=== PATIENT | male | born 1995 | race Caucasian/White ===

== ENCOUNTER 2018-07-25 13:34 | Emergency (ER) | payer OTHER ==
[~2018-07-25] VITALS: Ht 167.6 cm; Wt 77.1 kg
[~2018-07-25 13:34] MED LIST: ACETAMINOPHEN-1 EAC1 PO; BACTRIM DS TAB1 EACH PO; CLARITIN10 MG PO; DARVOCET-N 1001 EACH PO; FLEXERIL PO; FLOVENT; IBUPROFEN 800800 M1 PO; NOHOMEMEDICATIONS; PREDNISONE 20 M20 M1 PO; PROVENTIL; SINGULAIR 10 MG10 M1 PO; VENTOLIN HFA 1818 GM INH; ZPAK PO
[2018-07-25 13:57] LABS: ABSOLUTE EOSINOPHILS 0.1 thou/uL (0.0-0.7); ABSOLUTE LYMPHOCYTES 1.4 thou/uL (0.8-5.3); ABSOLUTE MONOCYTES 0.5 thou/uL (0.0-1.2); ABSOLUTE NEUTROPHILS 6.4 thou/uL (1.6-8.1); BASOPHILS 0.4 %; EOSINOPHILS 0.9 %; HEMATOCRIT 49.8 % (42.0-52.0); HEMOGLOBIN 17.1 gm/dL (14.0-18.0); LYMPHOCYTES 16.9 %; MCH 31.7 pg (26.0-34.0); MCHC 34.3 g/dL (28.0-37.0); MCV 92.2 fL (80.0-100.0); MONOCYTES 5.9 %; MPV 7.8 fl. (7.2-11.1); NUCLEATED RBCS 0 /100WBC; PLATELET COUNT* 222 thou/uL (150-400); POLYS 75.9 %; RDW-CV 12.8 % (10.5-14.5); WBC 8.5 thou/uL (4.0-11.0)
[2018-07-25 14:09] LABS: ALBUMIN 4.4 g/dL (3.4-5.0); CALCIUM 9.1 mg/dL (8.5-10.1); CREATININE 1.2 mg/dL (0.6-1.3); POTASSIUM 4.1 mmol/L (3.5-5.1); TOTAL BILIRUBIN 2.4 mg/dL (<0.1-1.0); TOTAL PROTEIN 8.1 g/dL (6.4-8.2)
[2018-07-25 14:19] LABS: URINE BILIRUBIN NEGATIVE (Negative); URINE BLOOD 3+ (Negative); URINE CLARITY CLEAR; URINE COLOR YELLOW; URINE GLUCOSE-RANDOM NEGATIVE (Negative); URINE KETONES NEGATIVE (Negative); URINE LEUKOCYTES-REFLEX NEGATIVE (Negative); URINE NITRITE-REFLEX NEGATIVE (Negative); URINE PROTEIN NEGATIVE (Negative); URINE UROBILINOGEN 0.2 E.U./dl (0.2-1.0)
[2018-07-25 14:25] LABS: BACTERIA-REFLEX None Seen /HPF (None Seen); CASTS None Seen /LPF (None Seen); CRYSTALS None Seen /LPF (None Seen); SQUAMOUS NONE SEEN /LPF (0-3); URINE RBC >20 Many /HPF (0-2); URINE WBC-REFLEX None Seen /HPF (0-5)
[2018-07-25] MEDS ORDERED: NORCO 5-325 TA1 EACH PO (15:22)
[2018-07-25] MEDS ORDERED: ONDANSETRON HCL4 M2 PO (15:22)
[2018-07-25 15:36] VITALS: BP 125/73
== END 2018-07-25 15:36 | disposition home or self-care (01) ==
LOC: M.ERS 13:34
PROVIDERS: Physician Assistant
DX: N20.1 Calculus of ureter (principal); J45.909 Unspecified asthma, uncomplicated; Z87.442 Personal history of urinary calculi

== ENCOUNTER 2018-07-26 03:12 | Emergency (ER) | payer OTHER ==
[~2018-07-26] VITALS: Ht 167.6 cm; Wt 77.1 kg
[~2018-07-26 03:12] MED LIST changes: +NORCO 5-325 TA1 EACH PO; +ONDANSETRON HCL4 M2 PO
[2018-07-26 04:23] LABS: HEMATOCRIT 47.7 % (42.0-52.0); MCH 31.2 pg (26.0-34.0); MCHC 33.5 g/dL (28.0-37.0); MCV 92.9 fL (80.0-100.0); NUCLEATED RBCS 0 /100WBC; PLATELET COUNT* 191 thou/uL (150-400); RBC 5.13 mil/uL (4.50-6.00); RDW-CV 13.1 % (10.5-14.5); WBC 15.8 thou/uL (4.0-11.0)
[2018-07-26 04:40] LABS: CALCIUM 9.3 mg/dL (8.5-10.1); CREATININE 1.7 mg/dL (0.6-1.3); POTASSIUM 3.8 mmol/L (3.5-5.1)
[2018-07-26 05:54] VITALS: BP 144/84
[2018-07-26 06:27] LABS: ABSOLUTE LYMPHOCYTES 0.8 thou/uL (0.8-5.3); ABSOLUTE MONOCYTES 0.9 thou/uL (0.0-1.2); ABSOLUTE NEUTROPHILS 14.1 thou/uL (1.6-8.1); PLATELET ESTIMATE ADEQUATE
[2018-07-26 06:28] LABS: ANISOCYTOSIS 1+; POIKILOCYTOSIS 1+
== END 2018-07-26 05:57 | disposition home or self-care (01) ==
LOC: M.ERS 03:12
PROVIDERS: Emergency Medicine
DX: N23 Unspecified renal colic (principal); J45.909 Unspecified asthma, uncomplicated; Z87.442 Personal history of urinary calculi

== ENCOUNTER 2018-09-09 07:29 | Emergency (ER) | payer OTHER ==
[~2018-09-09] VITALS: Ht 167.6 cm; Wt 78.5 kg
[2018-09-09] MEDS ORDERED: ULTRAM 50MG TAB50 MG PO (08:16)
[2018-09-09 08:22] VITALS: BP 138/88
== END 2018-09-09 08:23 | disposition home or self-care (01) ==
LOC: M.ERS 07:29
DX: S83.8X2A Sprain of other specified parts of left knee, initial encounter (principal); J45.909 Unspecified asthma, uncomplicated; Z87.442 Personal history of urinary calculi; X50.1XXA Overexertion from prolonged static or awkward postures, initial encounter; Y93.61 Activity, american tackle football; Y92.89 Other specified places as the place of occurrence of the external cause; Y99.8 Other external cause status